=== PATIENT | female | born 1990 | race Caucasian/White ===

== ENCOUNTER 2023-04-10 14:12 | Inpatient (IN) | payer BC ==
[2023-04-10 14:47] VITALS: BMI 52.9
[2023-04-10 15:35] LABS: #Eosinphils 0.1 10x3/uL (0.0-0.5); #Monocytes 0.7 10x3/uL (0.0-1.1); #Neutrophils 9.6 10x3/uL (1.5-8.4); %Basophils 0.2 % (0.0-2.0); %Eosinophils 0.6 % (0.0-6.0); %Lymphocytes 16.9 % (18.0-47.0); %Monocytes 5.2 % (0.0-10.0); %Neutrophils 76.5 % (40.0-75.0); Hematocrit 33.3 % (34.9-44.5); Hemoglobin 11.9 g/dL (12.0-15.5); Mean Corpuscular HGB CONC 35.7 g/dL (32.0-36.0); Mean Corpuscular Hemoglobin 33.1 pg (27.0-33.0); Mean Corpuscular Volume 92.8 fl (81.6-98.3); Mean Platelet Volume 10.1 fl (7.4-10.4); Platelet Count 206 10x3/uL (150-450); RBC Distribution Width 12.6 % (11.5-14.5); Red Blood Cell (RBC) Count 3.59 10x6/uL (3.90-5.03); White Blood Cell (WBC) Count 12.6 10x3/uL (3.5-10.5)
[2023-04-10 15:50] LABS: ALT (SGPT) 14 U/L (8-55); AST (SGOT) 17 U/L (5-34); Albumin 3.2 g/dL (3.5-5.0); Alkaline Phosphatase 126 U/L (40-110); Anion Gap 14 mmol/L (10-20); BUN (Urea Nitrogen) 9 mg/dL (7.0-18.7); Bilirubin, Total 0.3 mg/dL (0.2-1.2); Calc. Creatinine Clearance 246 mL/min (70-130); Calcium 9.2 mg/dL (7.8-10.44); Carbon Dioxide 22 mmol/L (22-29); Chloride 104 mmol/L (98-107); Estimated GFR 121; Globulin 3.1 g/dL (2.4-3.5); Glucose 82 mg/dL (70-105); Potassium 4.2 mmol/L (3.5-5.1); Protein, Total 6.3 g/dL (6.0-8.3); Sodium 136 mmol/L (136-145)
[2023-04-10 18:27] LABS: Creatinine, Urine 90.36 mg/dL (47-110)
[2023-04-10] MEDS ORDERED: hydrOXYzine Pamoate 25 mg Capsule PO SCH (21:00)
[2023-04-10] MEDS ORDERED: Acetaminophen 500 MG TAB PO PRN (21:57)
[2023-04-10] MEDS ORDERED: fentaNYL 50 mcg/mL 1 mL Vial SLOW IVP PRN (21:57)
[2023-04-11] MEDS: Labetalol HCl 100 MG TAB PO SCH (09:26)
[2023-04-11] MEDS ORDERED: CEFAZOLIN 2 GM VIAL ONE (09:50)
[2023-04-11] MEDS ORDERED: Azithromycin 500 MG VIAL ONE (09:51)
[2023-04-11] MEDS ORDERED: Bicitra 30 ML UDCUP ONE (09:51)
[2023-04-11] MEDS ORDERED: Famotidine/PF 20 mg/2ml Vial SLOW IVP PRN (10:12)
[2023-04-11] MEDS ORDERED: Bicitra 30 ML UDCUP PO PRN (10:12)
[2023-04-11] MEDS ORDERED: hydrALAZINE 20 MG/ML VIAL SLOW IVP PRN ×2 (10:12→13:48)
[2023-04-11] MEDS ORDERED: Promethazine HCl 25 MG/ML VIAL IM PRN ×2 (10:12→12:06)
[2023-04-11] MEDS ORDERED: Ondansetron PF 4 MG/2 ML Vial IVP PRN ×3 (10:12→12:06)
[2023-04-11] MEDS ORDERED: fentaNYL 50 mcg/mL 1 mL Vial ONE (10:14)
[2023-04-11] MEDS ORDERED: Dexamethasone 4 mg/ml Vial ONE (10:14)
[2023-04-11] MEDS ORDERED: Oxytocin 10 UNITS/ML VIAL ONE ×2 (10:14→10:15)
[2023-04-11] MEDS ORDERED: PHENYLEPHRINE-NS 100 MCG/ML 10 ML SYRINGE ONE (10:14)
[2023-04-11] MEDS ORDERED: Phenylephrine 40 MG/NS 250 ML 250 ML ONE (10:14)
[2023-04-11] MEDS ORDERED: Morphine PF 10 MG/10 ML VIAL ONE (10:14)
[2023-04-11] MEDS ORDERED: Ondansetron PF 4 MG/2 ML Vial ONE (10:14)
[2023-04-11] MEDS ORDERED: CEFAZOLIN 2 GM in Sodium Chloride 0.9% 100 ML IVPB SCH (10:15)
[2023-04-11] MEDS ORDERED: Oxytocin 30 units/NS 500 ML 500 ML IV SCH (10:15)
[2023-04-11] MEDS ORDERED: Lactated Ringer's 1,000 ML IV SCH (10:15)
[2023-04-11] MEDS ORDERED: ePHEDrine Sulfate 50 MG/10 ML VIAL ONE (10:39)
[2023-04-11] MEDS ORDERED: diphenhydrAMINE 50 MG/ML VIAL IVP PRN (12:06)
[2023-04-11] MEDS ORDERED: Moisturizing Cream (Eucerin) 113 GM JAR TOP PRN (12:06)
[2023-04-11] MEDS ORDERED: Meperidine HCl/PF 25 MG/ML VIAL SLOW IVP PRN (12:06)
[2023-04-11] MEDS ORDERED: fentaNYL 50 mcg/mL 1 mL Vial SLOW IVP PRN (12:06)
[2023-04-11] MEDS ORDERED: Promethazine HCl 25 MG SUPP PR PRN (12:06)
[2023-04-11] MEDS ORDERED: Naloxone HCl 0.4 mg/ml Vial IV PRN (12:06)
[2023-04-11] MEDS ORDERED: Naloxone HCl 0.4 mg/ml Vial IVP PRN ×2 (12:06)
[2023-04-11] MEDS ORDERED: Communication Order-Pharmacy FS SCH (12:15)
[2023-04-11] MEDS ORDERED: Boostrix 0.5 ML (Tdap) VIAL (>/=7 yrs of age) IM ONE (13:48)
[2023-04-11 14:36] LABS: HBSAg Index 0.26 S/CO (0-0.99); Hep B Surf Ag - L&D Non-Reactive S/CO (NonReactive); Syphilis Antibody Nonreactive (Nonreactive); Syphilis Antibody Index 0.05 S/CO (<1.00 Non-Reactive)
[2023-04-11] MEDS: Naproxen 500 MG TAB PO SCH (17:07)
[2023-04-11] MEDS: HYDROcodone/Acetaminophen 5/325 mg Tablet PO PRN (23:48)
[2023-04-12] MEDS: Labetalol HCl 100 MG TAB PO SCH (03:27)
[2023-04-12 04:25] LABS: Hematocrit 30.9 % (34.9-44.5); Hemoglobin 10.7 g/dL (12.0-15.5); Mean Corpuscular HGB CONC 34.6 g/dL (32.0-36.0); Mean Corpuscular Volume 95.4 fl (81.6-98.3); Mean Platelet Volume 10.5 fl (7.4-10.4); Platelet Count 194 10x3/uL (150-450); RBC Distribution Width 12.5 % (11.5-14.5); Red Blood Cell (RBC) Count 3.24 10x6/uL (3.90-5.03)
[2023-04-12] MEDS: HYDROcodone/Acetaminophen 5/325 mg Tablet PO PRN ×4 (06:27→21:15)
[2023-04-12] MEDS: Naproxen 500 MG TAB PO SCH ×2 (07:57→17:16)
[2023-04-12] MEDS: Docusate 100 MG CAP PO SCH (21:15)
[2023-04-13] MEDS: HYDROcodone/Acetaminophen 5/325 mg Tablet PO PRN ×4 (03:55→19:32)
[2023-04-13] MEDS: Naproxen 500 MG TAB PO SCH ×2 (08:24→19:30)
[2023-04-13] MEDS: Docusate 100 MG CAP PO SCH ×2 (08:24→21:03)
[2023-04-14] MEDS: HYDROcodone/Acetaminophen 5/325 mg Tablet PO PRN (02:59)
[2023-04-14] MEDS: Docusate 100 MG CAP PO SCH (07:56)
[2023-04-14] MEDS: Naproxen 500 MG TAB PO SCH (07:56)
[2023-04-14 11:18] VITALS: BP 147/81; TEMP 99.4
== END 2023-04-14 11:30 | disposition home or self-care (01) | DRG 788 ==
LOC: CSHLD/OP 14:12 → CSHLD 20:52 → OBSVTOIN 04-11 10:06 → CSHPED 04-11 15:54
PROVIDERS: ADMIT Obstetrics & Gynecology; ATTEND Obstetrics & Gynecology
PROC: 10D00Z1 Extraction of Products of Conception, Low, Open Approach (ICD-10-PCS; principal; 2023-04-11)
PROC: 3E033XZ Introduction of Vasopressor into Peripheral Vein, Percutaneous Approach (ICD-10-PCS; 2023-04-11)
PROC: 3E033VJ Introduction of Other Hormone into Peripheral Vein, Percutaneous Approach (ICD-10-PCS; 2023-04-11)
DX: O13.4 Gestational [pregnancy-induced] hypertension without significant proteinuria, complicating childbirth (principal); O24.429 Gestational diabetes mellitus in childbirth, unspecified control; O99.214 Obesity complicating childbirth; Z3A.37 37 weeks gestation of pregnancy; Z37.0 Single live birth; E66.9 Obesity, unspecified; O99.824 Streptococcus B carrier state complicating childbirth
CPT/HCPCS: 36415; 51702; 80053; 82570; 84156; 84560; 85025; 85027; 86780; 86850; 86900; 86901; 87340; 99285; J0456; J1100; J2175; J2274; J2405; J2590; J3010